=== PATIENT | female | born 1960 | race Caucasian/White ===

== ENCOUNTER 2016-12-25 18:52 | Emergency (ER) | payer OTHER ==
[2016-12-25 19:31] LABS: HEMOGLOBIN 11.9 gm/dl (12.3-15.3); RED BLOOD COUNT 4.36 M/UL (4.00-5.10); WHITE BLOOD COUNT 10.3 K/UL (4.5-11.0)
[2016-12-25 19:50] LABS: BUN/CREATININE RATIO 25 (0-10)
== END 2016-12-25 22:25 | disposition home or self-care (01) ==
LOC: ER1 18:52
PROVIDERS: Emergency Medicine
DX: R42 Dizziness and giddiness (principal); R00.1 Bradycardia, unspecified; J45.909 Unspecified asthma, uncomplicated; Z88.0 Allergy status to penicillin; Z88.5 Allergy status to narcotic agent; Z79.82 Long term (current) use of aspirin; Z79.899 Other long term (current) drug therapy
CPT/HCPCS: 36415; 71010; 80053; 82550; 82553; 83690; 83874; 84484; 85025; 85379; 93005; 96374; 99284; J2405; J7030; J7040

== ENCOUNTER 2022-02-14 15:41 | Emergency (ER) | payer OTHER ==
[2022-02-14 17:01] LABS: HEMOGLOBIN 12.7 gm/dl (12.3-15.3); RED BLOOD COUNT 4.85 M/UL (4.00-5.10); WHITE BLOOD COUNT 9.1 K/UL (4.5-11.0)
[2022-02-14 17:28] LABS: BUN/CREATININE RATIO 20 (0-10)
== END 2022-02-14 21:05 | disposition home or self-care (01) ==
LOC: ER1 15:41
PROVIDERS: Emergency Medicine
DX: R07.2 Precordial pain (principal); I10 Essential (primary) hypertension; J45.909 Unspecified asthma, uncomplicated; Z88.0 Allergy status to penicillin; Z88.5 Allergy status to narcotic agent
CPT/HCPCS: 71045; 80053; 82550; 82553; 84484; 85025; 93005; 99285